=== PATIENT | male | born 1985 | race African-American/Black ===

== ENCOUNTER 2018-01-07 18:03 | Emergency (ER) | payer SELFPAY ==
--- NOTE | 2018-01-07 18:12 | PDOC ---
Rapid Medical Evaluation Time Seen by Provider: 01/07/18 18:06 Medical Evaluation: Allergies Allergy/AdvReac Type Severity Reaction Status Date / Time No Known Allergies Allergy Verified 01/07/18 18:09 01/07/18 18:09 Pt c/o: Went to [facility] for laceration to rt 2nd digit, had zeroform and bandage applied, received tdap and came here since it continues to bleed Pt on brief exam: rt 2nd digit with bandage. Did not remove. Pt ordered for: none Pt to proceed to the ED Discharge Disposition - Diagnosis Laceration of finger - Referrals - Patient Instructions - Post Discharge Activity
[2018-01-07 18:15] VITALS: BP 184/111; PULSE 114; TEMP 98.4; BMI 28.7
--- NOTE | 2018-01-07 20:01 | PDOC ---
History of Present Illness - General Chief Complaint: Laceration Stated Complaint: LACERATION Time Seen by Provider: 01/07/18 18:06 - History of Present Illness Initial Comments: 01/07/18 19:55 CHIEF COMPLAINT: cut to finger HISTORY OF PRESENT ILLNESS: 32 yo M with no PMH presents to ED with cut to R index finger. 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 He states that he was seen at [facility] this morning "but it didn't stop bleeding. " Patient states he received a tdap shot. PAST MEDICAL HISTORY: Denies past medical history FAMILY HISTORY: Denies SOCIAL HISTORY: Denies tobacco, alcohol, illicit drug use. SURGICAL HISTORY: Denies ALLERGIES: No known drug allergies REVIEW OF SYSTEMS General/Constitutional: Denies fever or chills. Denies weakness, weight change. HEENT: Denies change in vision. Denies ear pain or discharge. Denies sore throat. Cardiovascular: Denies chest pain or shortness of breath. Respiratory: Denies cough, wheezing, or hemoptysis. Gastrointestinal: Denies nausea, vomiting, diarrhea or constipation. Denies rectal bleeding. Genitourinary: Denies dysuria, frequency, or change in urination. Musculoskeletal: Denies joint or muscle swelling or pain. Denies neck or back pain. 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 No apparent distress , no intoxication. HEENT: EOMI, PERRLA, normal ENT inspection, normal voice, TMs normal, pharynx normal. No conjunctival pallor. No photophobia, scleral icterus. Neck: Supple. Trachea midline. No tenderness, rigidity, carotid bruit, stridor , lymphadenopathy, or thyromegaly. Respiratory/Chest: Lungs CTAB. No shortness of breath, chest tenderness, respiratory distress, accessory muscle use. No crackles, rales, rhonchi, stridor , wheezing, dullness Cardiovascular: RRR. S1, S2. No JVD, murmur, bradycardia, tachycardia. Vascular Pulses: Dorsalis-Pedis (R): 2+, Dorsalis-Pedis (L): 2+ Gastrointestinal/Abdominal: Normal bowel sounds. Abdomen soft, non-distended. No tenderness or rebound tenderness. No organomegaly, pulsatile mass, guarding , hernia, hepatomegaly, splenomegaly. Lymphatic: No adenopathy, tenderness. Musculoskeletal/Extremities: Normal inspection. FROM of all extremities, normal capillary refill. Pelvis Stable. No CVA tenderness. No tenderness to extremities, pedal edema, swelling, erythema or deformity. Integumentary: Skin avulsion to R index finger. Appropriate color, dry, warm. No cyanosis, erythema, jaundice or rash Neurologic: software quality analyst II-XII intact. Fully oriented, alert. Appropriate mood/affect. Motor strength 5/5. No appreciable EOM palsy, facial droop or sensory deficit. Past History - Past Medical History Allergies/Adverse Reactions: Allergies Allergy/AdvReac Type Severity Reaction Status Date / Time No Known Allergies Allergy Verified 01/07/18 18:09 Home Medications: Ambulatory Orders NK [No Known Home Medication] 01/07/18 COPD: No HTN: Yes (NOT ON MEDS) - Suicide/Smoking/Psychosocial Hx Smoking History: Current every day smoker Have you smoked in the past 12 months: Yes Number of Cigarettes Smoked Daily: 5 Information on smoking cessation initiated: No *Physical Exam - Vital Signs Last Vital Signs Temp Pulse Resp BP Pulse Ox 98.4 F 114 H 19 184/111 100 01/07/18 18:09 01/07/18 18:09 01/07/18 18:09 01/07/18 18:09 01/07/18 18:09 Medical Decision Making - Medical Decision Making 01/07/18 20:01 32 yo M with no PMH presents to ED with cut to R index finger. -surgicel and xeroform dressing applied, finger dressed with tube gauze. *DC/Admit/Observation/Transfer Diagnosis at time of Disposition: Avulsion of skin - Discharge Dispostion Disposition: HOME Condition at time of disposition: Stable Admit: No - Referrals - Patient Instructions Printed Discharge Instructions: DI for Laceration Repair -- Finger Additional Instructions: As discussed, please keep your finger clean and dry for the next 24-48 hours. Put pressure on it to help stop the bleeding. Please change the dressing as needed to keep the finger clean and dry. You may also ice the finger to help slow the bleeding. If you develop any swelling, warmth, redness or increased pain to the finger, please return to the ER immediately. - Post Discharge Activity Forms/Work/School Notes: Back to Work
== END 2018-01-07 20:11 | disposition home or self-care (01) ==
LOC: JER 18:03 → JERFT 18:03
PROC: 0HQFXZZ Repair Right Hand Skin, External Approach (ICD-10-PCS; principal; 2018-01-07)
DX: S61.200A Unspecified open wound of right index finger without damage to nail, initial encounter (principal); W31.82XD Contact with other commercial machinery, subsequent encounter
CPT/HCPCS: 99281-25